=== PATIENT | female | born 1945 | race Caucasian/White ===

== ENCOUNTER 2016-10-27 10:00 | Outpatient (CLI) | payer MEDICARE, OTHER | END 2016-10-27 10:01 | disposition home or self-care (01) | DX: M25.562 Pain in left knee (principal) ==

== ENCOUNTER 2017-06-19 15:24 | Outpatient (CLI) | payer MEDICARE, OTHER ==
--- NOTE | 2017-06-20 13:30 | XRAY Report ---
TWO VIEW CHEST: 06/19/2017 No comparison. INDICATION: Shortness of breath. TECHNIQUE: Two radiographic chest views. FINDINGS: There are chronic-appearing interstitial changes of the lower lung. There are large lung volumes. No pneumothorax or pleural effusion. The mediastinum appears otherwise unremarkable. IMPRESSION: COPD. NO ACUTE FINDINGS IN OTHER REGARDS. MTDD
== END 2017-06-19 15:25 | disposition home or self-care (01) ==
LOC: DI 15:24
PROVIDERS: ATTEND Physician Assistant Medical
DX: J44.9 Chronic obstructive pulmonary disease, unspecified (principal)
CPT/HCPCS: 71020

== ENCOUNTER 2017-06-28 10:07 | Outpatient (CLI) | payer MEDICARE, OTHER ==
[2017-06-28 17:44] LABS: BASOPHILS % (AUTO) 0.6 %; EOSINOPHILS # (AUTO) 0.1 10^3/uL (0.0-0.7); EOSINOPHILS % (AUTO) 2.1 %; HCT - HEMATOCRIT 43.9 % (37.0-47.0); HGB - HEMOGLOBIN 14.6 g/dL (12.0-16.0); LYMPHOCYTES # (AUTO) 1.9 10^3/uL (1.5-3.5); LYMPHOCYTES % (AUTO) 28.7 %; MEAN CORPUSCULAR HEMOGLOBIN 30.7 pg (27.0-31.0); MEAN CORPUSCULAR HGB CONC 33.3 g/dL (32.0-36.0); MEAN CORPUSCULAR VOLUME 92.1 fL (81.0-99.0); MEAN PLATELET VOLUME 7.8 fL (7.9-10.8); MONOCYTES # (AUTO) 0.8 10^3/uL (0.0-1.0); MONOCYTES % (AUTO) 11.8 %; NEUTROPHILS # (AUTO) 3.8 10^3/uL (1.5-6.6); NEUTROPHILS % (AUTO) 56.8 %; NUCLEATED RED BLOOD CELLS AUTO 0.1 /100WBC; RED BLOOD COUNT 4.77 10^6/uL (4.20-5.40); UNCORRECTED WHITE BLOOD COUNT 6.6 x10^3/uL; WHITE BLOOD COUNT 6.6 x10^3/uL (4.8-10.8)
[2017-06-28 17:55] LABS: ALBUMIN/GLOBULIN RATIO 1.5 (1.0-2.2); BUN - BLOOD UREA NITROGEN 18 mg/dL (6-20); CALCIUM 9.2 mg/dL (8.5-10.3); CARBON DIOXIDE - CO2 27 mmol/L (21-32); CHLORIDE 100 mmol/L (101-111); CHOL/HDL RATIO 5.8 (<4.4); CHOLESTEROL 226 mg/dL; GFR - MDRD 55 (>89); GLUCOSE 99 mg/dL (70-100); HDL CHOLESTEROL 39 mg/dL; LDL/HDL RATIO 4.1 (<4.4); POTASSIUM 3.4 mmol/L (3.5-5.0); SODIUM 136 mmol/L (135-145); TOTAL PROTEIN 7.1 g/dL (6.7-8.2); TRIGLYCERIDES 138 mg/dL; VLDL CHOLESTEROL 28 mg/dL
[2017-06-28 17:56] LABS: HEMOGLOBIN A1C 0.64 g/dL
== END 2017-06-28 10:08 | disposition home or self-care (01) ==
LOC: LAB.F 10:07
PROVIDERS: ATTEND Internal Medicine
DX: R73.9 Hyperglycemia, unspecified (principal); I10 Essential (primary) hypertension; K30 Functional dyspepsia; E78.5 Hyperlipidemia, unspecified
CPT/HCPCS: 36415; 80053; 80061; 83036; 85025

== ENCOUNTER 2018-08-23 10:54 | Outpatient (CLI) | payer MEDICARE, OTHER ==
[2018-08-23 17:41] LABS: BASOPHILS % (AUTO) 0.7 %; EOSINOPHILS # (AUTO) 0.2 10^3/uL (0.0-0.7); EOSINOPHILS % (AUTO) 2.1 %; HGB - HEMOGLOBIN 14.9 g/dL (12.0-16.0); LYMPHOCYTES # (AUTO) 2.2 10^3/uL (1.5-3.5); LYMPHOCYTES % (AUTO) 30.9 %; MEAN CORPUSCULAR HEMOGLOBIN 30.7 pg (27.0-31.0); MEAN CORPUSCULAR HGB CONC 32.7 g/dL (32.0-36.0); MEAN CORPUSCULAR VOLUME 93.9 fL (81.0-99.0); MEAN PLATELET VOLUME 7.8 fL (7.9-10.8); MONOCYTES # (AUTO) 0.7 10^3/uL (0.0-1.0); MONOCYTES % (AUTO) 10.1 %; NEUTROPHILS % (AUTO) 56.2 %; PLT - PLATELET COUNT 249 10^3/uL (130-450); RED BLOOD COUNT 4.87 10^6/uL (4.20-5.40); RED CELL DISTRIBUTION WIDTH 13.3 % (12.0-15.0); WHITE BLOOD COUNT 7.1 x10^3/uL (4.8-10.8)
[2018-08-23 18:00] LABS: ALBUMIN 4.5 g/dL (3.2-5.5); ALBUMIN/GLOBULIN RATIO 1.6 (1.0-2.2); ALKALINE PHOSPHATASE 60 IU/L (42-121); ALT ALANINE AMINOTRANSFERASE 33 IU/L (10-60); AST ASPARTATE AMINOTRANSFERASE 28 IU/L (10-42); BILIRUBIN,TOTAL 0.9 mg/dL (0.2-1.0); BUN - BLOOD UREA NITROGEN 15 mg/dL (6-20); CALCIUM 9.6 mg/dL (8.5-10.3); CARBON DIOXIDE - CO2 28 mmol/L (21-32); CHLORIDE 101 mmol/L (101-111); CHOL/HDL RATIO 5.1 (<4.4); CHOLESTEROL 257 mg/dL; CREATININE 0.8 mg/dL (0.4-1.0); GFR - MDRD 70 (>89); GLUCOSE 95 mg/dL (70-100); HDL CHOLESTEROL 50 mg/dL; LDL CHOLESTEROL,CALCULATED 177 mg/dL; LDL/HDL RATIO 3.5 (<4.4); SODIUM 137 mmol/L (135-145); TOTAL PROTEIN 7.4 g/dL (6.7-8.2); VLDL CHOLESTEROL 30 mg/dL
== END 2018-08-23 10:55 | disposition home or self-care (01) ==
LOC: LAB.F 10:54
PROVIDERS: ATTEND Internal Medicine
DX: R73.9 Hyperglycemia, unspecified (principal); J45.909 Unspecified asthma, uncomplicated; I10 Essential (primary) hypertension; E78.5 Hyperlipidemia, unspecified
CPT/HCPCS: 36415; 80053; 80061; 83721; 84443; 85025

== ENCOUNTER 2018-09-18 13:21 | Outpatient (CLI) | payer MEDICARE, OTHER ==
[2018-09-18] MEDS ORDERED: ALBUTEROL NEB 2.5 MG/3 ML INH ONE (16:27)
[2018-09-18] MEDS ORDERED: ALBUTEROL NEB 2.5 MG/3 ML INH PRN (16:27)
== END 2018-09-18 13:22 | disposition home or self-care (01) ==
LOC: RT 13:21
PROVIDERS: ATTEND Internal Medicine
DX: J45.909 Unspecified asthma, uncomplicated (principal)
CPT/HCPCS: 94060; 94664

== ENCOUNTER 2018-10-26 13:59 | Outpatient (CLI) | payer MEDICARE, OTHER ==
--- NOTE | 2018-11-01 08:33 | Mammography Report ---
Reason: SCREENING MAMMOGRAM Procedure Date: 10/26/2018 Accession Number: [id number] / [id number] Procedure: LIZZIE - Screening Mammo w/Raheem CPT Code: FULL RESULT: EXAM: Screening Mammo w/Raheem DATE: 10/26/2018 2:48 PM CLINICAL HISTORY: Screening encounter. History of late childbearing. Family history of breast cancer in a sister at the age of 55, a grandmother at the age of 50, and a cousin at the age of 50. TECHNIQUE: Bilateral CC and MLO views were obtained. COMPARISON: None FINDINGS: The breasts demonstrate scattered fibroglandular densities bilaterally. There are coarse typically benign calcifications. In the right medial lower breast approximately 4.5 cm from the nipple is a well-circumscribed isodense ovoid nodule which measures 5 mm, MLO image 41 cc image 22. This finding requires focused right breast ultrasound for characterization in absence of prior studies. If prior studies can be made available to establish stability over time, additional diagnostic workup can be obviated. No suspicious masses, clustered microcalcifications, or regions of architectural distortion are identified in the left breast. IMPRESSION: Incomplete examination RECOMMENDATION: Additional evaluation of the right breast with focused ultrasound examination. If prior studies can be made available to establish stability over time, additional diagnostic workup can likely be obviated. BIRADS CATEGORY 0: Incomplete examination STANDARD QUALIFYING STATEMENTS: 1. This examination was not reviewed with the aid of Computer-Aided Detection (CAD). 2. A negative or benign imaging report should not delay biopsy if clinically suspicious findings are present. Consider surgical consultation if warrented. More than 5% of cancers are not identified by imaging. 3. Dense breasts may obscure an underlying neoplasm. 4. This examination was reviewed with the aid of 3D breast imaging (tomosynthesis).
== END 2018-10-26 14:00 | disposition home or self-care (01) ==
LOC: DI 13:59
PROVIDERS: ATTEND Internal Medicine
DX: Z12.31 Encounter for screening mammogram for malignant neoplasm of breast (principal); Z80.3 Family history of malignant neoplasm of breast
CPT/HCPCS: 77063; 77067

== ENCOUNTER 2018-10-26 14:00 | Outpatient (CLI) | payer MEDICARE, OTHER ==
--- NOTE | 2018-10-29 08:56 | DEXA Report ---
Reason: POSTMENOPAUSAL Procedure Date: 10/26/2018 Accession Number: [id number] / [id number] Procedure: DEX - Dexa Spine and/or Hip CPT Code: FULL RESULT: EXAM: Dexa Spine and/or Hip DATE: 10/26/2018 2:59 PM CLINICAL HISTORY: POSTMENOPAUSAL TECHNIQUE: Dual energy x-ray absorptiometry (DXA) was performed on a [email or web address] System. Regions measured are the AP Spine, femoral neck, and if needed forearm. COMPARISON: None. In accordance with the International Society for Clinical Densitometry (ISCD) guidelines, data from previous exams may be reanalyzed using current recommendations and techniques. This is done to allow a more accurate basis for comparison with the current study. FINDINGS: The data for the lumbar spine is as follows: BMD (g/cm/cm) T-SCORE Z-SCORE REGION L1 1.136 0.1 1.8 L2 1.109 -0.8 1.0 L3 0.993 -1.7 0.0 L4 1.018 -1.5 0.2 TOTAL 1.059 -1.0 0.7 NOTE: All evaluable vertebrae are used for classification The data for the hip is as follows: BMD (g/cm/cm) T-SCORE Z-SCORE REGION Neck 0.748 -2.1 -0.2 TOTAL 0.869 -1.1 0.5 NOTE: The femoral neck or total proximal femur, whichever is lowest, is used for classification. IMPRESSION: THE WHO CLASSIFICATION BASED ON THE INTERNATIONAL REFERENCE STANDARD IS OSTEOPENIA. THE FRACTURE RISK IS INCREASED. RECOMMENDATION: Patients with diagnosis of osteoporosis or osteopenia should have regular bone mineral density assessment. For those eligible for Medicare, routine testing is allowed once every 2 years. Testing frequency can be increased for patients who have rapidly progressing disease or for those who are receiving medical therapy to restore bone mass. COMMENT: World Health Organization (WHO) definitions for osteoporosis and osteopenia: NORMAL BMD: T-score at -1.0 or higher, fracture risk is low OSTEOPENIA BMD: T-score between -1.0 and -2.5, fracture risk is increased. OSTEOPOROSIS BMD: T-score at -2.5 or lower, fracture risk is high. National Osteoporosis Foundation recommends: 1. Obtain adequate dietary calcium (at least 1200 mg per day) and vitamin D (400-800 international units per day). 2. Participate, as appropriate, in regular weightbearing and muscle-strengthening exercise. 3. Avoid tobacco use and reduce alcohol and caffeine intake. 4. For more detailed information see the website at www.NOF.org.
== END 2018-10-26 14:01 | disposition home or self-care (01) ==
LOC: DI 14:00
PROVIDERS: ATTEND Internal Medicine
DX: M85.89 Other specified disorders of bone density and structure, multiple sites (principal); Z78.0 Asymptomatic menopausal state
CPT/HCPCS: 77080

== ENCOUNTER 2020-08-12 12:21 | Outpatient (CLI) | payer MEDICARE, OTHER | END 2020-08-12 12:22 | disposition home or self-care (01) | LOC: COV 12:21 | PROVIDERS: ATTEND Family Medicine | DX: R06.02 Shortness of breath (principal); Z20.828 Contact with and (suspected) exposure to other viral communicable diseases ==

== ENCOUNTER 2021-03-11 08:00 | Outpatient (CLI) | payer MEDICARE, OTHER ==
--- NOTE | 2021-03-11 18:59 | XRAY Report ---
PROCEDURE: Chest 2 View X-Ray INDICATIONS: SHORTNESS OF BREATH TECHNIQUE: 2 view(s) of the chest. COMPARISON: Chest x-ray 2 views, 06/19/2017. FINDINGS: Surgical changes and devices: None. Lungs and pleura: Mild hyperinflation consistent with COPD. Chronic interstitial prominence. There a re biapical scarring. No pleural effusions or pneumothorax. Mediastinum: Mediastinal contours are normal. Heart size is normal. Bones and chest wall: No suspicious bony abnormalities. Soft tissues appear unremarkable. IMPRESSION: 1. COPD and chronic interstitial prominence. Reviewed by: Karis Farr MD on 03/11/2021 6:58 PM PDT Approved by: Karis Farr MD on 03/11/2021 6:58 PM PDT Station ID: [id number]
== END 2021-03-11 23:59 | disposition home or self-care (01) ==
LOC: DI.S 08:00
PROVIDERS: ATTEND Physician Assistant Medical
DX: J44.9 Chronic obstructive pulmonary disease, unspecified (principal); R06.02 Shortness of breath; Z20.822 Contact with and (suspected) exposure to COVID-19
CPT/HCPCS: 71046; U0004

== ENCOUNTER 2021-03-11 18:25 | Outpatient (CLI) | payer MEDICARE, OTHER | END 2021-03-11 23:59 | disposition home or self-care (01) | LOC: LAB.S 18:25 | PROVIDERS: ATTEND Physician Assistant Medical | DX: R06.02 Shortness of breath (principal); Z20.822 Contact with and (suspected) exposure to COVID-19 ==

== ENCOUNTER 2021-03-11 20:22 | Outpatient (CLI) | payer MEDICARE, OTHER | END 2021-03-11 20:23 | disposition short-term general hospital (02) | LOC: EMS 20:22 | DX: R06.02 Shortness of breath (principal); R53.83 Other fatigue; R07.89 Other chest pain | CPT/HCPCS: A0425; A0429 ==

== ENCOUNTER 2021-04-25 20:58 | Outpatient (CLI) | payer MEDICARE, OTHER | END 2021-04-25 20:59 | disposition critical access hospital (66) | LOC: EMS 20:58 | DX: R23.2 Flushing (principal); R42 Dizziness and giddiness; R07.89 Other chest pain | CPT/HCPCS: A0425; A0429 ==

== ENCOUNTER 2021-04-25 21:38 | Emergency (ER) | payer MEDICARE, OTHER ==
--- NOTE | 2021-04-25 21:38 | ED Physician Documentation ---
PD HPI CHEST PAIN - Stated complaint Stated Complaint: CHEST TIGHTNESS/ MED REACTION - History obtained from History obtained from: Patient, EMS - History of Present Illness Timing - onset: Other (tonight) Timing - onset during: Rest Timing - details: Abrupt onset Pain level max: 2 Pain level now: 0 Quality: Tightness Location: Other (across upper chest) Radiation: Other (no radiation) Improved by: Nothing Worsened by: Other (no exacerbating component) Associated symptoms: Feeling faint / dizzy Similar symptoms before: No diagnosis - Additional information Additional information: BIBA. patient says that tonight she was at home at rest when she had sudden onset lightheadedness, feeling flushed, and chest tightness. Symptoms began approximately 1 hour [facility]IE[facility] HOSPITAL ADMINISTRATOR. She refused NTG en route. She also had nausea but no vomiting. She says tonights symptoms are new, although she also has a printout that documents changes in her antihypertensive medications over the past 6 weeks. There are several entries and they each include side effects she was experiencing (including elevated blood pressure with some doses of her an tihypertensive). The first entry is dated 03/11/21, lists symptoms that include chest pain and palpitations, and she was admitted that day to [facility] and underwent a stress test prior to d/c. Patient says the stress test was unremarkable. Patient suspects her symptoms over the past few weeks, as well as the symptoms she had tonight, are due to side effect of her antihypertensive although she has not taken them since yesterday evening. Review of Systems Constitutional: reports: Reviewed and negative Cardiac: reports: Chest pain / pressure. denies: Palpitations, Pedal edema Respiratory: reports: Reviewed and negative GI: reports: Nausea. denies: Abdominal Pain, Vomiting : denies: Dysuria Neurologic: reports: Generalized weakness (resolved [facility] HOSPITAL ADMINISTRATOR), Near syncope. denies: Focal weakness, Numbness, Syncope PD PAST MEDICAL HISTORY - Past Medical History Past Medical History: Yes Cardiovascular: Hypertension - Present Medications Home Medications: Ambulatory Orders Medication Instructions Recorded Confirmed LORazepam [Ativan] 0.5 mg PO Q6H PRN #14 tablet 04/26/21 - Allergies Allergies/Adverse Reactions: Allergies Allergy/AdvReac Type Severity Reaction Status Date / Time Unable to Assess Allergy Verified 04/25/21 21:55 - Living Situation Living Situation: reports: Alone Living Arrangement: reports: At home PD ED PE NORMAL - Vitals Vital signs reviewed: Yes - General General: Alert and oriented X 3, No acute distress, Well developed/nourished - HEENT HEENT: PERRL, EOMI - Neck Neck: Supple, no meningeal sign - Cardiac Cardiac: RRR, No murmur, No gallop, No rub - Respiratory Respiratory: No respiratory distress, Clear bilaterally - Abdomen Abdomen: Soft, Non tender - Derm Derm: Normal color, Warm and dry - Extremities Extremities: No edema Results - Vitals Vitals: Oxygen O2 Source Room air - EKG (time done) No standard instances Rate: Rate (enter#) (81) Rhythm: NSR [place]: Normal Intervals: Normal [place] QRS: Normal Ischemia: Normal ST segments - Labs Labs: Laboratory Tests 04/25/21 04/25/21 04/25/21 22:22 22:22 22:22 WBC 8.4 RBC 4.78 Hgb 14.9 Hct 43.4 MCV 90.8 MCH 31.2 H MCHC 34.3 RDW 12.3 Plt Count 236 MPV 8.9 Neut # (Auto) 5.0 Lymph # (Auto) 2.3 [place] # (Auto) 0.8 Eos # (Auto) 0.2 Baso # (Auto) 0.0 Absolute Nucleated RBC 0.00 Nucleated RBC % 0.0 Sodium 135 Potassium 3.9 Chloride 100 L Carbon Dioxide 24 Anion Gap 11.0 BUN 18 Creatinine 1.0 Estimated GFR (MDRD) 54 L Glucose 106 H Calcium 9.3 Total Bilirubin 1.0 AST 23 ALT 23 Alkaline Phosphatase 58 Troponin I High Sens 7.5 Total Protein 7.3 Albumin 4.6 Globulin 2.7 Albumin/Globulin Ratio 1.7 Lipase 45 PD MEDICAL DECISION MAKING - ED course Complexity details: reviewed results, re-evaluated patient, considered differential, d/w patient ED course: presents with symptom description that mosts suggests a near-syncopal episode. Her EKG and blood tests are reassuring, without concerning findings, including tropnin. No ectopy on cardiac monitoring except occasional PAC. I reviewed results with patient we discussed her concern that her symptoms over the past several weeks are due to the blood pressure medications she has been trialled on, with changes in doses as well as changes in which medications are being used. While side effects of these medications are possible, it is unlikely she would have developed symptoms tonight that are side effects of her medication given that she has not taken any doses for nearly 24 hours. I stressed the importance of long-term control of hypertension and instructed her to follow up with her primary care provider. Departure - Departure Disposition: 01 Home, Self Care Clinical Impression: Atypical chest pain Condition: Good Instructions: ED Chest Pain Atypical Unkn Cause Follow-Up: KAILA PETERSON MD [Primary Care Provider] - Within 1 week Prescriptions: LORazepam [Ativan] 0.5 mg PO Q6H PRN #14 tablet PRN Reason: Anxiety Comments: A prescription for lorazepam (anti anxiety medication) has been electronically submitted to [facility] in [place] Discharge Date/Time: 04/26/21 01:20
[2021-04-25 22:26] LABS: BASOPHILS % (AUTO) 0.5 %; EOSINOPHILS # (AUTO) 0.2 10^3/uL (0.0-0.7); EOSINOPHILS % (AUTO) 2.7 %; HCT - HEMATOCRIT 43.4 % (37.0-47.0); HGB - HEMOGLOBIN 14.9 g/dL (12.0-16.0); LYMPHOCYTES # (AUTO) 2.3 10^3/uL (1.5-3.5); LYMPHOCYTES % (AUTO) 27.5 %; MEAN CORPUSCULAR HEMOGLOBIN 31.2 pg (27.0-31.0); MEAN CORPUSCULAR HGB CONC 34.3 g/dL (32.0-36.0); MEAN CORPUSCULAR VOLUME 90.8 fL (81.0-99.0); MEAN PLATELET VOLUME 8.9 fL (7.9-10.8); MONOCYTES # (AUTO) 0.8 10^3/uL (0.0-1.0); MONOCYTES % (AUTO) 9.8 %; NEUTROPHILS % (AUTO) 59.1 %; PLT - PLATELET COUNT 236 10^3/uL (130-450); RED BLOOD COUNT 4.78 10^6/uL (4.20-5.40); RED CELL DISTRIBUTION WIDTH 12.3 % (12.0-15.0); WHITE BLOOD COUNT 8.4 x10^3/uL (4.8-10.8)
[2021-04-25 22:40] LABS: ALBUMIN 4.6 g/dL (3.2-5.5); ALBUMIN/GLOBULIN RATIO 1.7 (1.0-2.2); CALCIUM 9.3 mg/dL (8.5-10.3); POTASSIUM 3.9 mmol/L (3.5-5.0); TOTAL PROTEIN 7.3 g/dL (6.7-8.2)
[2021-04-26 01:20] VITALS: BP 149/89
== END 2021-04-26 01:20 | disposition home or self-care (01) ==
LOC: EDUNIT# → SUPCPDRO 21:38 → ED 21:38
DX: R07.89 Other chest pain (principal); R55 Syncope and collapse; R11.0 Nausea; I49.1 Atrial premature depolarization; I10 Essential (primary) hypertension
CPT/HCPCS: 36415; 80053; 83690; 84484; 85025; 93005; 99284

== ENCOUNTER 2021-05-28 09:46 | Outpatient (CLI) | payer MEDICARE, OTHER ==
[2021-05-28 14:45] LABS: ALBUMIN 4.4 g/dL (3.2-5.5); ALBUMIN/GLOBULIN RATIO 1.6 (1.0-2.2); BILIRUBIN,TOTAL 1.1 mg/dL (0.2-1.0); CALCIUM 9.4 mg/dL (8.5-10.3); MAGNESIUM 2.1 mg/dL (1.7-2.8); POTASSIUM 3.9 mmol/L (3.5-5.0); TOTAL PROTEIN 7.1 g/dL (6.7-8.2)
[2021-05-28 14:53] LABS: BASOPHILS # (AUTO) 0.1 10^3/uL (0.0-0.1); BASOPHILS % (AUTO) 0.7 %; EOSINOPHILS # (AUTO) 0.1 10^3/uL (0.0-0.7); EOSINOPHILS % (AUTO) 1.6 %; HGB - HEMOGLOBIN 14.8 g/dL (12.0-16.0); LYMPHOCYTES # (AUTO) 1.8 10^3/uL (1.5-3.5); LYMPHOCYTES % (AUTO) 25.7 %; MEAN CORPUSCULAR HEMOGLOBIN 30.3 pg (27.0-31.0); MEAN CORPUSCULAR HGB CONC 32.2 g/dL (32.0-36.0); MEAN CORPUSCULAR VOLUME 94.3 fL (81.0-99.0); MEAN PLATELET VOLUME 9.3 fL (7.9-10.8); MONOCYTES # (AUTO) 0.8 10^3/uL (0.0-1.0); MONOCYTES % (AUTO) 11.1 %; NEUTROPHILS # (AUTO) 4.1 10^3/uL (1.5-6.6); NEUTROPHILS % (AUTO) 60.6 %; PLT - PLATELET COUNT 254 10^3/uL (130-450); RED BLOOD COUNT 4.88 10^6/uL (4.20-5.40); RED CELL DISTRIBUTION WIDTH 12.8 % (12.0-15.0); WHITE BLOOD COUNT 6.8 x10^3/uL (4.8-10.8)
[2021-05-28 14:58] LABS: THYROID STIMULATING HORMONE 2.79 uIU/mL (0.34-5.60)
== END 2021-05-28 09:47 | disposition home or self-care (01) ==
LOC: LAB.S 09:46
PROVIDERS: ATTEND Physician Assistant Medical
DX: R00.2 Palpitations (principal); I10 Essential (primary) hypertension
CPT/HCPCS: 36415; 80053; 83735; 84443; 85025

== ENCOUNTER 2022-12-28 07:00 | Outpatient (CLI) | payer MEDICARE, OTHER ==
--- NOTE | 2022-12-28 16:47 | XRAY Report ---
PROCEDURE: Chest 2 View X-Ray INDICATIONS: SHORTNESS OF BREATH. TECHNIQUE: 2 views of the chest were acquired. COMPARISON: None. FINDINGS: Surgical changes and devices: None. Lungs and pleura: Hyperinflation and chronic interstitial changes Mediastinum: Mediastinal contours appear normal. Heart size is normal. Atherosclerotic vascular karla cification noted in the aortic arch. Bones and chest wall: No suspicious bony lesions. Overlying soft tissues appear unremarkable. IMPRESSION: Hyperinflation and chronic interstitial changes. No focal infiltrate Reviewed by: Joel Castaneda MD on 12/28/2022 3:46 PM AKDT Approved by: Joel Castaneda MD on 12/28/2022 3:46 PM AKDT Station ID: [id number]
== END 2022-12-28 23:59 | disposition home or self-care (01) ==
LOC: DI.S 07:00
PROVIDERS: ATTEND Physician Assistant Medical
DX: R06.02 Shortness of breath (principal)

== ENCOUNTER 2023-01-29 11:35 | Emergency (ER) | payer MEDICARE, OTHER ==
[2023-01-29] MEDS ORDERED: diphenhydrAMINE INJ 50 MG/ML VIAL IVP STA (12:04)
[2023-01-29] MEDS ORDERED: METOPROLOL 5 MG/5 ML VIAL IVP STA (12:04)
--- NOTE | 2023-01-29 12:05 | ED Physician Documentation ---
History of Present Illness - Stated complaint Stated Complaint: SOA, TIGHT CHEST - Chief complaint Chief Complaint: Cardiac - History obtained from History obtained from: Patient - Additonal information Additional information: 77-year-old woman with history of hypertension on olmesartan/HCTZ. At the pharmacy a few days ago they gave her a different formulation from a different blanket cutter hand. Starting the next day she started to feel shaky with chest pressure, a rash on her chest and feeling like her face is swollen. PD PAST MEDICAL HISTORY - Past Medical History Cardiovascular: Hypertension Respiratory: Asthma - Past Surgical History Past Surgical History: No - Present Medications Home Medications: Ambulatory Orders Medication Instructions Recorded Confirmed LORazepam [Ativan] 0.5 mg PO Q6H PRN #14 tablet 04/26/21 Losartan [Cozaar] 50 mg PO DAILY #7 tablet 01/29/23 Olmesartan/Hydrochlorothiazide 1 each PO DAILY #90 tablet 01/29/23 [Olmesartan-Hctz 20-12.5 mg Tab] - Allergies Allergies/Adverse Reactions: Allergies Allergy/AdvReac Type Severity Reaction Status Date / Time ciprofloxacin [From Cipro] Allergy Rash Verified 01/29/23 11:50 lisinopril Allergy Rash Verified 01/29/23 11:50 metoprolol Allergy Rash Verified 01/29/23 12:19 - Social History Does the pt smoke?: No Smoking Status: Never smoker Does the pt drink ETOH?: No Does the pt have substance abuse?: No - Immunizations Immunizations are current?: Yes - POLST Patient has POLST: No PD ED PE NORMAL - Vitals Vital signs reviewed: Yes - General General: Alert and oriented X 3, No acute distress - Neck Neck: Supple, no meningeal sign, No bony TTP - Cardiac Cardiac: RRR, No murmur - Respiratory Respiratory: No respiratory distress, Clear bilaterally - Abdomen Abdomen: Non tender - Derm Derm: Other (Mild erythema to the upper chest) - Neuro Neuro: Alert and oriented X 3, Normal speech Results - Vitals Vitals: Vital Signs - 24 hr 01/29/23 01/29/23 01/29/23 11:44 12:10 12:33 Temperature 36.6 C Heart Rate 81 79 73 Respiratory 18 18 23 Rate Blood Pressure 198/76 H 139/94 H 182/71 H O2 Saturation 98 97 100 Oxygen O2 Source Room air - EKG (time done) 1154 EKG releavant findings:: EKG personally interpreted by author of this note. Relevant findings are: Rate: Rate (enter#) (72) Rhythm: NSR [place]: Normal Intervals: Normal [place] QRS: Normal Ischemia: Non specific changes. No: ST elevation c/w ischemia, ST depression Computer interpretation: Agree with computer - Labs Labs: Laboratory Tests 01/29/23 01/29/23 01/29/23 12:05 12:05 12:22 WBC 8.6 RBC 4.96 Hgb 14.8 Hct 45.3 MCV 91.3 MCH 29.8 MCHC 32.7 RDW 12.9 Plt Count 256 MPV 9.1 Neut # (Auto) 5.5 Lymph # (Auto) 2.2 [place] # (Auto) 0.7 Eos # (Auto) 0.1 Baso # (Auto) 0.1 Absolute Nucleated RBC 0.00 Nucleated RBC % 0.0 Sodium 140 Potassium 3.5 Chloride 104 Carbon Dioxide 27 Anion Gap 9.0 BUN 16 Creatinine 0.9 Estimated GFR (MDRD) 61 L Glucose 133 H Calcium 9.4 Troponin I High Sens 6.3 PD Medical Decision Making - ED course ED course: 77-year-old with chest tightness and a rash which she thinks is related to starting a different blanket cutter hand's olmesartan/hydrochlorothiazide. She was feeling much better after IV Benadryl here. Ischemic work-up was negative with normal CBC and BMP otherwise. We called [facility] and they will order the brand name, and in the meantime she wanted something else for her blood pressure and was prescribed losartan. Departure - Departure Disposition: 01 Home, Self Care Clinical Impression: Chest pain, Hypertension Condition: Good Record reviewed to determine appropriate education?: Yes Instructions: ED Chest Pain NonCardiac Prescriptions: Losartan [Cozaar] 50 mg PO DAILY #7 tablet Olmesartan/Hydrochlorothiazide [Olmesartan-Hctz 20-12.5 mg Tab] 1 each PO DAILY #90 tablet Comments: Thankfully no sign of heart attack. I sent a prescription for losartan to the pharmacy, hopefully will get you through until they can order the brand name for you. Return for new or worsening symptoms. Mention this visit to your primary care physician after the office opens tomorrow. Discharge Date/Time: 01/29/23 13:01
[2023-01-29 12:12] LABS: BASOPHILS # (AUTO) 0.1 10^3/uL (0.0-0.1); BASOPHILS % (AUTO) 0.6 %; EOSINOPHILS # (AUTO) 0.1 10^3/uL (0.0-0.7); EOSINOPHILS % (AUTO) 1.6 %; HCT - HEMATOCRIT 45.3 % (37.0-47.0); HGB - HEMOGLOBIN 14.8 g/dL (12.0-16.0); LYMPHOCYTES # (AUTO) 2.2 10^3/uL (1.5-3.5); LYMPHOCYTES % (AUTO) 25.2 %; MEAN CORPUSCULAR HEMOGLOBIN 29.8 pg (27.0-31.0); MEAN CORPUSCULAR HGB CONC 32.7 g/dL (32.0-36.0); MEAN CORPUSCULAR VOLUME 91.3 fL (81.0-99.0); MEAN PLATELET VOLUME 9.1 fL (7.9-10.8); MONOCYTES # (AUTO) 0.7 10^3/uL (0.0-1.0); MONOCYTES % (AUTO) 8.2 %; NEUTROPHILS # (AUTO) 5.5 10^3/uL (1.5-6.6); NEUTROPHILS % (AUTO) 64.3 %; PLT - PLATELET COUNT 256 10^3/uL (130-450); RED BLOOD COUNT 4.96 10^6/uL (4.20-5.40); RED CELL DISTRIBUTION WIDTH 12.9 % (12.0-15.0); WHITE BLOOD COUNT 8.6 x10^3/uL (4.8-10.8)
--- OUTSIDE RECORDS SUMMARY | 2023-01-29 12:14 | EXTERNAL MEDICAL SUMMARY RPT | Continuity of Care Document ---
Author Name Unknown Address [address] [place] [address] Phone Organization [facility] Address [address] [place] [address] Phone Care Team Providers Care Salesperson [employer] Name Role Phone Unavailable Unavailable Unavailable Bladimir Thrasher Pa-C Unavailable Unavailable Catrachita Edwards Pa-C Unavailable Unavailable Kumar Patient Registrar, Litzy Unavailable Unavailable Medications date description facility 2022-12-10 00:00 olmesartan [facility] 2022-12-10 00:00 olmesartan [facility] 2022-12-12 00:00 olmesartan [facility] 2022-12-28 00:00 olmesartan [facility] 2022-12-29 00:00 olmesartan [facility] 2022-12-30 00:00 olmesartan [facility] 2022-12-10 00:00 olmesartan [facility] 2022-12-10 00:00 olmesartan [facility] 2022-12-12 00:00 olmesartan [facility] 2022-12-28 00:00 olmesartan [facility] 2022-12-29 00:00 olmesartan [facility] 2022-12-30 00:00 olmesartan [facility] 2022-12-10 00:00 olmesartan-hydrochlorothiazide [facility] 2022-12-10 00:00 olmesartan-hydrochlorothiazide [facility] 2022-12-12 00:00 olmesartan-hydrochlorothiazide [facility] 2022-12-28 00:00 olmesartan-hydrochlorothiazide [facility] 2022-12-29 00:00 olmesartan-hydrochlorothiazide [facility] 2022-12-30 00:00 olmesartan-hydrochlorothiazide [facility] 2022-12-10 00:00 olmesartan-hydrochlorothiazide [facility] 2022-12-10 00:00 olmesartan-hydrochlorothiazide [facility] 2022-12-12 00:00 olmesartan-hydrochlorothiazide [facility] 2022-12-28 00:00 olmesartan-hydrochlorothiazide [facility] 2022-12-29 00:00 olmesartan-hydrochlorothiazide [facility] 2022-12-30 00:00 olmesartan-hydrochlorothiazide [facility] 2022-12-10 00:00 olmesartan [facility] 2022-12-10 00:00 olmesartan [facility] 2022-12-12 00:00 olmesartan [facility] 2022-12-28 00:00 olmesartan [facility] 2022-12-29 00:00 olmesartan [facility] 2022-12-30 00:00 olmesartan [facility] 2022-12-10 00:00 olmesartan-hydrochlorothiazide [facility] 2022-12-10 00:00 olmesartan-hydrochlorothiazide [facility] 2022-12-12 00:00 olmesartan-hydrochlorothiazide [facility] 2022-12-28 00:00 olmesartan-hydrochlorothiazide [facility] 2022-12-29 00:00 olmesartan-hydrochlorothiazide [facility] 2022-12-30 00:00 olmesartan-hydrochlorothiazide [facility] 2022-12-10 00:00 olmesartan [facility] 2022-12-10 00:00 olmesartan [facility] 2022-12-12 00:00 olmesartan [facility] 2022-12-28 00:00 olmesartan [facility] 2022-12-29 00:00 olmesartan [facility] 2022-12-30 00:00 olmesartan [facility] [place] 2022-12-10 00:00 olmesartan-hydrochlorothiazide [facility] 2022-12-10 00:00 olmesartan-hydrochlorothiazide [facility] [place] 2022-12-12 00:00 olmesartan-hydrochlorothiazide [facility] [place] 2022-12-28 00:00 olmesartan-hydrochlorothiazide [facility] 2022-12-29 00:00 olmesartan-hydrochlorothiazide [facility] [place] 2022-12-30 00:00 olmesartan-hydrochlorothiazide [facility] [place] Problems date description facility 2022-12-10 00:00 Viral upper respirat ory tract infection [facility] 2022-12-10 00:00 Viral upper respirat ory tract infection [facility] 2022-12-10 00:00 Acute upper respirat ory infections of unspecified site [facility] 2022-12-10 00:00 Acute upper respirat ory infections of unspecified site [facility] 2022-12-10 00:00 Acute upper respirat ory infection, unspecified [facility] [place] 2022-12-10 00:00 Acute upper respirat ory infection, unspecified [facility] [place] 2022-12-28 00:00 Seasonal allergy [facility] [place] 2022-12-28 00:00 Allergic rhinitis, c ause unspecified [facility] [place] 2022-12-28 00:00 Other seasonal allergic rhiniti s [facility] [place] Procedures date description facility 2022-12-10 00:00 Visit Code Hold [facility] [place] 2022-12-10 00:00 Visit Code Hold [facility] [place] 2022-12-28 00:00 Visit Code Hold [facility] [place] Social History date description facility 2022-12-10 00:00 Never smoker [facility] [place] 2022-12-10 00:00 Never smoker [facility] [place] 2022-12-28 00:00 Never smoker [facility] Vital Signs date measurement value units 2022-12-10 00:00 BMI 26.33 kg/m2 2022-12-10 00:00 BP_diastolic 90 mmHg 2022-12-10 00:00 BP_systolic 160 mmHg 2022-12-10 00:00 heart_rate 96 /min 2022-12-10 00:00 height_metric 153.9 cm 2022-12-10 00:00 height_standard 60.59 in 2022-12-10 00:00 respiration_rate 16 /min 2022-12-10 00:00 temperature_metric 36.72 C 2022-12-10 00:00 temperature_standard 98.1 F 2022-12-10 00:00 weight_metric 62.14 kg 2022-12-10 00:00 weight_standard 137 lb 2022-12-28 00:00 BMI 25.79 kg/m2 2022-12-28 00:00 BP_diastolic 79 mmHg 2022-12-28 00:00 BP_systolic 158 mmHg 2022-12-28 00:00 heart_rate 84 /min 2022-12-28 00:00 height_metric 153.9 cm 2022-12-28 00:00 height_standard 60.59 in 2022-12-28 00:00 respiration_rate 16 /min 2022-12-28 00:00 temperature_metric 36.72 C 2022-12-28 00:00 temperature_standard 98.1 F 2022-12-28 00:00 weight_metric 60.87 kg 2022-12-28 00:00 weight_standard 134.2 lb
--- NOTE | 2023-01-29 12:31 | XRAY Report ---
PROCEDURE: Chest 1 View X-Ray INDICATIONS: cp TECHNIQUE: One view of the chest was acquired. COMPARISON: None. FINDINGS: Surgical changes and devices: None. Overlying EKG wires. Lungs and pleura: No pleural effusions or pneumothorax. Lungs are clear. Mediastinum: Mediastinal contours appear normal. Heart size is normal. Bones and chest wall: No suspicious bony lesions. Overlying soft tissues appear unremarkable. IMPRESSION: No acute cardiopulmonary process. Reviewed by: Lavell Tai DO on 01/29/2023 11:30 AM BOZENA Approved by: Lavell Tai DO on 01/29/2023 11:30 AM BOZENA Station ID: [id number]
[2023-01-29 12:34] LABS: CALCIUM 9.4 mg/dL (8.5-10.3); CREATININE 0.9 mg/dL (0.4-1.0); POTASSIUM 3.5 mmol/L (3.5-5.0)
[2023-01-29 12:36] VITALS: BP 182/71
== END 2023-01-29 13:01 | disposition home or self-care (01) ==
LOC: ED 11:35
DX: R07.9 Chest pain, unspecified (principal); I10 Essential (primary) hypertension
CPT/HCPCS: 36415; 71045; 80048; 84484; 85025; 93005; 96374; 99284; J1200

== ENCOUNTER 2023-05-13 21:15 | Emergency (ER) | payer MEDICARE, OTHER ==
[2023-05-13 22:02] VITALS: O2SAT 98
[2023-05-13] MEDS ORDERED: ONDANSETRON ODT 4 MG TABLET TL STA (22:13)
[2023-05-13 22:36] LABS: BASOPHILS # (AUTO) 0.1 10^3/uL (0.0-0.1); BASOPHILS % (AUTO) 0.8 %; EOSINOPHILS # (AUTO) 0.2 10^3/uL (0.0-0.7); EOSINOPHILS % (AUTO) 1.8 %; HGB - HEMOGLOBIN 15.8 g/dL (12.0-16.0); LYMPHOCYTES # (AUTO) 2.8 10^3/uL (1.5-3.5); LYMPHOCYTES % (AUTO) 29.4 %; MEAN CORPUSCULAR HEMOGLOBIN 30.2 pg (27.0-31.0); MEAN CORPUSCULAR HGB CONC 32.9 g/dL (32.0-36.0); MEAN CORPUSCULAR VOLUME 91.6 fL (81.0-99.0); MEAN PLATELET VOLUME 9.2 fL (7.9-10.8); MONOCYTES # (AUTO) 0.8 10^3/uL (0.0-1.0); MONOCYTES % (AUTO) 8.7 %; NEUTROPHILS # (AUTO) 5.7 10^3/uL (1.5-6.6); NEUTROPHILS % (AUTO) 58.8 %; PLT - PLATELET COUNT 247 10^3/uL (130-450); RED BLOOD COUNT 5.24 10^6/uL (4.20-5.40); RED CELL DISTRIBUTION WIDTH 12.3 % (12.0-15.0); WHITE BLOOD COUNT 9.7 x10^3/uL (4.8-10.8)
[2023-05-13 22:55] LABS: CALCIUM 9.3 mg/dL (8.5-10.3); CREATININE 0.9 mg/dL (0.4-1.0); POTASSIUM 3.7 mmol/L (3.5-5.0)
[2023-05-13] MEDS ORDERED: ONDANSETRON ODT 4 MG Prepack 2 TL PRN (23:47)
--- NOTE | 2023-05-13 23:50 | ED Physician Documentation ---
History of Present Illness - Stated complaint Stated Complaint: HIGH BLOOD PRESSURE,DIZZY - Chief complaint Chief Complaint: General - History obtained from History obtained from: Patient - Additonal information Additional information: HPI from patientJonel Garduno says that approximately few hours [employer]WORK[employer], at home and with specific inciting event, she developed pruritic rash to RUE. She eventually developed more lesions on LUE (both upper arms, posterior surface) as well as a few on bilateral ankles. She then developed generalized headache, nausea without vomiting, and elevated BP. She took one-half of a clonidine before coming to ED (this rx is written on a PRN basis). Denies dyspnea,denies wheezing, denies lightheadedness. Review of Systems Respiratory: reports: Reviewed and negative GI: reports: Nausea. denies: Abdominal Pain, Vomiting PD PAST MEDICAL HISTORY - Past Medical History Past Medical History: Yes Cardiovascular: Hypertension Respiratory: Asthma - Past Surgical History Past Surgical History: Yes General: Appendectomy - Present Medications Home Medications: Ambulatory Orders Medication Instructions Recorded Confirmed LORazepam [Ativan] 0.5 mg PO Q6H PRN #14 tablet 04/26/21 Losartan [Cozaar] 50 mg PO DAILY #7 tablet 01/29/23 Olmesartan/Hydrochlorothiazide 1 each PO DAILY #90 tablet 01/29/23 [Olmesartan-Hctz 20-12.5 mg Tab] Hydrocortisone Valerate 1 film TP BID #15 gm 05/13/23 - Allergies Allergies/Adverse Reactions: Allergies Allergy/AdvReac Type Severity Reaction Status Date / Time ciprofloxacin [From Cipro] Allergy Rash Verified 01/29/23 11:50 lisinopril Allergy Rash Verified 01/29/23 11:50 metoprolol Allergy Rash Verified 01/29/23 12:19 - Social History Does the pt smoke?: No Smoking Status: Never smoker Does the pt drink ETOH?: No Does the pt have substance abuse?: No - Immunizations Immunizations are current?: Yes - POLST Patient has POLST: No PD ED PE NORMAL - Vitals Vital signs reviewed: Yes - General General: Alert and oriented X 3, No acute distress, Well developed/nourished - HEENT HEENT: Moist mucous membranes, Pharynx benign, Other (airway widely patent; no kaylee/intraoral swelling) - Cardiac Cardiac: RRR, No murmur - Respiratory Respiratory: No respiratory distress, Clear bilaterally - Abdomen Abdomen: Soft, Non tender PD ED PE EXPANDED - Derm Derm: Other (there are 2-3 flat erythematous macules on flexor surface of each upper arm. no lesions on abdomen, back. There are a few isolated macules and papules on ankles bilaterally. no lesions between fingers, toes) Results - Vitals Vitals: Oxygen O2 Source Room air - Labs Labs: Laboratory Tests 05/13/23 05/13/23 22:31 22:31 WBC 9.7 RBC 5.24 Hgb 15.8 Hct 48.0 H MCV 91.6 MCH 30.2 MCHC 32.9 RDW 12.3 Plt Count 247 MPV 9.2 Neut # (Auto) 5.7 Lymph # (Auto) 2.8 [place] # (Auto) 0.8 Eos # (Auto) 0.2 Baso # (Auto) 0.1 Absolute Nucleated RBC 0.00 Nucleated RBC % 0.0 Sodium 141 Potassium 3.7 Chloride 102 Carbon Dioxide 25 Anion Gap 14.0 H BUN 21 H Creatinine 0.9 Estimated GFR (MDRD) 61 L Glucose 102 H Calcium 9.3 PD Medical Decision Making - ED course Complexity details: considered differential, d/w patient ED course: Normal CBC (except isolated , irrelevantly/minimally elevated hct), and unremarkable BMP (21 bun, creatinine 0.9). These labs were undertaken to screen for evidence of end-organ damage regarding high blood pressures. She took another dose of clonidine in ED (she has the bottle with her, and I encouraged her to take a full tablet, not just a half-tab). Whichever intervention she undertook had appropriate effect in that her BP trended down during stay from 220s SBP to 147/52 prior to d/c. Results d/w patient. I explained that her rash is very non-specific and thus no specific treatment at this time. Does not look like scabies (location and appearance), mosquito bites. Doubt bed bugs but no specific treatment beyond eliminating infestation if present. I explained to patient that I cannot offer a specific diagnosis based on this non-specific rash, of which there are a very few lesions to go by. She asks for a steroid cream which I am e-prescribing given the focal nature of the (few) lesions (and thus might help with the pruritis). Encouraged to follow up with PCP, might benefit from dermatology referral. Departure - Departure Disposition: 01 Home, Self Care Clinical Impression: Rash and nonspecific skin eruption Hypertension Qualifiers: Hypertension type: unspecified Qualified Code(s): I10 - Essential (primary) hypertension Condition: Good Instructions: ED Erythema, ED HTN Established Follow-Up: KAILA PETERSON MD [Primary Care Provider] - Prescriptions: Hydrocortisone Valerate 1 film TP BID #15 gm Comments: There were no concerning findings on tonight's blood tests. By the end of your ER stay, your blood pressure had significantly improved after taking the clonidine. The cause of your skin lesions is not apparent at this time. They do not appear to be consistent with an allergic reaction, or any particular bites or medical illness. It might become more apparent as to the cause if other lesions appear or if other signs/symptoms are noted. Follow up with your primary care provider; at their discretion, a referral to a aerosol line operator might be helpful should the lesions persist without explanation as to cause. Forms: PCP List Discharge Date/Time: 05/13/23 23:59
[2023-05-13 23:56] VITALS: BP 145/57
== END 2023-05-13 23:59 | disposition home or self-care (01) ==
LOC: ED 21:15
DX: R21 Rash and other nonspecific skin eruption (principal); I10 Essential (primary) hypertension
CPT/HCPCS: 36415; 80048; 85025; 99283; 99284; Q0162

== ENCOUNTER 2024-02-13 09:00 | Outpatient (CLI) | payer MEDICARE, OTHER ==
--- NOTE | 2024-02-13 11:17 | CT Report ---
PROCEDURE: Head WO INDICATIONS: AMS, CERVICALGIA TECHNIQUE: Noncontrast 4.5 mm thick angled axial sections acquired from the foramen magnum to the vertex. For r adiation dose reduction, the following was used: automated exposure control, adjustment of mA and/or kV according to patient size. COMPARISON: Correlation is made with the accompanying imaging. FINDINGS: Image quality: There is streak artifact seen through the skull base. CSF spaces: Basal cisterns are patent. No extra-axial fluid collections. Ventricles are normal in size and shape. Brain: No midline shift. No intracranial masses or hemorrhage. Leger-white matter interface is norm al. Skull and face: Bilateral remote birdie holes can be seen posteriorly and superiorly. Calvarium and vi sualized facial bones are intact, without suspicious lesions. Sinuses: Visualized sinuses and mastoids are clear. IMPRESSION: No acute intracranial pathology. Additional findings: Bilateral remote birdie holes seen posteriorly and superiorly Reviewed by: Amish Rogel MD on 02/13/2024 10:15 AM BOZENA Approved by: Amish Rogel MD on 02/13/2024 10:15 AM AKDINA Station ID: [id number]
--- NOTE | 2024-02-13 11:19 | CT Report ---
PROCEDURE: Cervical Spine WO INDICATIONS: AMS, CERVICALGIA TECHNIQUE: Noncontrast 3 mm thick sections acquired from the skull base to the T4 level. Sagittal and coronal r eformats were then constructed. For radiation dose reduction, the following was used: automated exp osure control, adjustment of mA and/or kV according to patient size. COMPARISON: Correlation is made with the accompanying imaging. FINDINGS: Image quality: Excellent. Bones: No fractures or dislocations. Visualized superior ribs are intact. There is at least moderate disc space narrowing seen at C3-C4, C4-C5, and C5-C6. 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 Posterior directed endplate ost eophytes are seen, which are worst at the C4-C5 level. Soft tissues: Prevertebral soft tissues are normal in thickness. No paravertebral hematomas. No ap ical pneumothoraces. Thyroid nodules are seen, the largest on the right measuring 2.8 cm. IMPRESSION: Cervical spine degenerative changes are seen, which are worst at the C3-C4 level. - If it would be helpful for clinical management decision making, please consider a dedicated cervica l spine MRI for further evaluation (assuming that there is no contraindication). Bilateral thyroid nodules are seen. - When clinically appropriate, please consider a follow-up thyroid ultrasound for further evaluation. Additional findings: C6-C7 congenital fusion Reviewed by: Amish Rogel MD on 02/13/2024 10:18 AM BOZENA Approved by: Amish Rogel MD on 02/13/2024 10:18 AM BOZENA Station ID: [id number]
== END 2024-02-13 09:01 | disposition home or self-care (01) ==
LOC: DI 09:00
PROVIDERS: ATTEND Registered Nurse
DX: M47.812 Spondylosis without myelopathy or radiculopathy, cervical region (principal); R41.82 Altered mental status, unspecified; E04.2 Nontoxic multinodular goiter; G44.309 Post-traumatic headache, unspecified, not intractable; S06.0XAA Concussion with loss of consciousness status unknown, initial encounter; R09.82 Postnasal drip